=== PATIENT | female | born 1935 | race Caucasian/White ===

== ENCOUNTER 2021-10-08 11:39 | Emergency (ER) | payer MEDICAID, MEDICARE ==
[~2021-10-08] VITALS: Ht 162.6 cm; Wt 60.0 kg
[2021-10-08 13:14] VITALS: BP 154/60
[2021-10-08] MEDS ORDERED: TRAM50TA2 PO (15:03)
== END 2021-10-08 15:22 | disposition home or self-care (01) ==
LOC: ER 11:40
DX: M54.50 Low back pain, unspecified (principal); G89.29 Other chronic pain; R05.3 Chronic cough
CPT/HCPCS: 99283